=== PATIENT | male | born 1985 | race Caucasian/White ===

== ENCOUNTER 2021-01-22 14:21 | Emergency (ER) | payer OTHER ==
[~2021-01-22] VITALS: Ht 182.9 cm; Wt 79.4 kg
[2021-01-22] MEDS ORDERED: OXAYDO5 M1 PO ×2 (16:03→16:07)
== END 2021-01-22 16:15 | disposition home or self-care (01) ==
LOC: ER 14:21
DX: S42.022A Displaced fracture of shaft of left clavicle, initial encounter for closed fracture (principal); Z88.4 Allergy status to anesthetic agent; V86.59XA Driver of other special all-terrain or other off-road motor vehicle injured in nontraffic accident, initial encounter
CPT/HCPCS: 73000; 99283-25

== ENCOUNTER 2021-01-31 12:23 | Day surgery (SDC) | payer OTHER ==
[~2021-01-31] VITALS: Ht 182.9 cm; Wt 79.0 kg
[~2021-01-31 12:23] MED LIST: OXAYDO5 M1 PO
--- NOTE | 2021-01-31 15:09 | NUR ---
01/31/21 1508 Christie rAceo S REPORT RECEIVED FROM [facility].TMG. WAITING FOR PORTABLE XRAY TO COME TO [facility] TO XRAY PT. PT. VERBALIZES WARM ENOUGH. CALL LIGHT IS WITHIN REACH.
== END 2021-01-31 15:43 | disposition home or self-care (01) ==
LOC: ORSCSDS 12:23
PROVIDERS: Orthopaedic Surgery
PROC: 0PSB04Z Reposition Left Clavicle with Internal Fixation Device, Open Approach (ICD-10-PCS; principal; 2021-01-31 14:00)
DX: S42.022A Displaced fracture of shaft of left clavicle, initial encounter for closed fracture (principal); F17.210 Nicotine dependence, cigarettes, uncomplicated
CPT/HCPCS: 73000; C1713; J0690; J1100; J1885; J2250; J2405; J2704; J2795; J3010; J7120

== ENCOUNTER 2021-04-10 07:57 | Day surgery (SDC) | payer OTHER ==
[~2021-04-10] VITALS: Ht 182.9 cm; Wt 80.8 kg
--- NOTE | 2021-04-10 08:46 | NUR ---
Ambulatory in Day Surgery History, Chart, Medications and Allergies reviewed before start of procedure.Patient States Post-Procedure ride home has been arranged.
--- NOTE | 2021-04-10 09:02 | NUR ---
04/10/21 0902 Tiara Gomez History, Chart, Medications and Allergies reviewed before start of procedure. Patient confirms NPO status and agrees with scheduled surgery. 3-LEAD EKG REVIEWED WITH PHYSICIAN PRIOR TO START OF PROCEDURE. MONITOR INTACT WITH CONTINUOUS PULSE OXIMETRY AND INTERMITTENT BP. PATIENT DETERMINED TO BE ASA APPROPRIATE FOR PROPOFOL SEDATION PRIOR TO START OF PROCEDURE BY DR. SILVA.
--- NOTE | 2021-04-10 09:57 | NUR ---
Patient up to Ambulate independently. Gait steady. Discharge instructions reviewed with patient. Patient verbalizes understanding. Copy given to patient to take home, ALSO WENT OVER WITH PT'S RIDE HOME. Patient States Post-Procedure ride home has been arranged. Discharged via wheelchair to private car for ride home.
== END 2021-04-10 09:58 | disposition home or self-care (01) ==
LOC: ORSCMMR 07:57 → ORD 09:00 → ORSCMMR 09:58
PROVIDERS: Internal Medicine Gastroenterology
PROC: 0DBP8ZX Excision of Rectum, Via Natural or Artificial Opening Endoscopic, Diagnostic (ICD-10-PCS; principal; 2021-04-10 09:00)
DX: K62.5 Hemorrhage of anus and rectum (principal); K63.5 Polyp of colon; R19.4 Change in bowel habit; K64.4 Residual hemorrhoidal skin tags; F17.210 Nicotine dependence, cigarettes, uncomplicated
CPT/HCPCS: 88305; J2704; J7120